=== PATIENT | female | born 1950 | race Asian ===

== ENCOUNTER 2017-01-24 09:43 | Emergency (ER) | payer MEDICARE, OTHER ==
[~2017-01-24] VITALS: Ht 149.9 cm; Wt 56.8 kg
[2017-01-24] MEDS ORDERED: METF500T PO (10:00)
[2017-01-24] MEDS ORDERED: SIMV20TA6 PO (10:00)
[2017-01-24] MEDS ORDERED: TELM1TAB4 PO (10:00)
[2017-01-24] MEDS ORDERED: CARV12.580 PO (10:00)
[2017-01-24 10:02] LABS: GLUCOSE,POINT OF CARE 132 MG/DL (70-110)
[2017-01-24 12:08] VITALS: BP 151/88
== END 2017-01-24 12:10 | disposition home or self-care (01) ==
LOC: EMS 09:46
DX: J32.9 Chronic sinusitis, unspecified (principal); I10 Essential (primary) hypertension; E78.00 Pure hypercholesterolemia, unspecified
CPT/HCPCS: 82962; 99283

== ENCOUNTER 2022-07-06 12:08 | Emergency (ER) | payer MEDICARE, OTHER ==
[~2022-07-06] VITALS: Ht 147.3 cm; Wt 63.6 kg
[~2022-07-06 12:08] MED LIST: CARV12.580 PO; METF500T PO; SIMV-43 PO; TELM1TAB4 PO
[2022-07-06 12:12] VITALS: BP 141/84
[2022-07-06 12:26] LABS: GLUCOMETER DEV NAME(LOC) ERT.5; GLUCOSE,POINT OF CARE 168 MG/DL (70-110)
== END 2022-07-06 13:16 | disposition left against medical advice (07) ==
LOC: EMS 12:30
DX: Z53.21 Procedure and treatment not carried out due to patient leaving prior to being seen by health care provider (principal)
CPT/HCPCS: 82962